=== PATIENT | male | born 1940 | race Two or more races ===

== ENCOUNTER 2021-02-01 08:18 | Outpatient (REF) | payer MEDICAID, SELFPAY ==
[2021-02-01 09:17] LABS: Hematocrit 34.8 % (42-52); Hemoglobin 11.4 g/dl (14.0-18.0); Mean Corpuscular HGB Conc 32.8 g/dl (31.0-36.0); Mean Corpuscular Hemoglobin 30.2 pg (27.0-33.0); Mean Corpuscular Volume 92.1 fL (80-98); Mean Platelet Volume 11.3 fL (9.4-12.4); Platelet Count 158 X10*3/uL (160-400); Red Blood Count 3.78 X10*6/uL (4.60-5.80); Red Cell Distribution Width 13.1 % (11.0-16.0); White Blood Count 4.1 X10*3/uL (4.8-10.8)
[2021-02-01 09:27] LABS: Appearance Urine CLEAR; Color Urine YELLOW; Glucose Urine UA NEG (NEG); Leukocyte Esterase Urine NEG (NEG); Nitrite Urine NEG (NEG); PH 6.5 (5.0-8.0); Specific Gravity - Urine 1.015 (1.005-1.025); Urine Blood NEG (NEG); Urine Ketones NEG (NEG); Urine Protein NEG (NEG-TRACE)
[2021-02-01 09:49] LABS: Alanine Aminotransferase 8 U/L (0-40); Albumin Level 4.1 g/dL (3.5-5.0); Alkaline Phosphatase 86 U/L (39-117); Anion Gap 9 (12-20); Aspartate Amino Transferase 21 U/L (5-37); Bilirubin Direct 0.3 mg/dL (0.0-0.5); Bilirubin Total 0.4 mg/dL (0.0-1.0); Blood Urea Nitrogen 18 mg/dL (9-16); Calcium 10.2 mg/dL (8.4-10.2); Carbon Dioxide 30 mmol/L (22-29); Chloride 102 mmol/L (96-108); Cholesterol 119 mg/dL; Estimated Glomerular Filt Rate 56; Glucose Random 100 mg/dL (60-115); HDL Cholesterol 41 mg/dL; LDL Cholesterol Calculated 66 mg/dl; Sodium 136 mmol/L (135-145); Total Protein 7.4 g/dL (6.5-8.0); Triglycerides 63 mg/dL
[2021-02-01 10:07] LABS: Prostate Specific Antigen Scr 0.56 ng/mL (<0.05-4.0)
[2021-02-05 12:46] LABS: Vitamin D 25-OH, D2 <4 ng/mL; Vitamin D 25-OH, D3 15 ng/mL; Vitamin D 25-OH, Total 15 ng/mL (30-100)
== END 2021-02-01 08:19 | disposition home or self-care (01) ==
LOC: HO.LAB 08:18
PROVIDERS: PCP Internal Medicine; Visit Provider Internal Medicine
DX: I10 Essential (primary) hypertension (principal)
CPT/HCPCS: 36415; 80048; 80061; 80076; 81003; 82306; 84153; 85027

== ENCOUNTER 2021-12-01 15:40 | Outpatient (REF) | payer MEDICAID, SELFPAY ==
[2021-12-01 17:00] LABS: Vitamin B12 847 pg/mL (200-900)
== END 2021-12-01 15:41 | disposition home or self-care (01) ==
LOC: HO.LAB 15:40
PROVIDERS: PCP Internal Medicine; Visit Provider Psychiatry & Neurology Neurology
DX: F03.91 Unspecified dementia, unspecified severity, with behavioral disturbance (principal)
CPT/HCPCS: 36415; 82607

== ENCOUNTER 2022-06-06 07:46 | Outpatient (REF) | payer MEDICAID, SELFPAY ==
[2022-06-06 08:46] LABS: Hemoglobin 11.5 g/dl (14.0-18.0); Mean Corpuscular HGB Conc 33.8 g/dl (31.0-36.0); Mean Corpuscular Hemoglobin 30.9 pg (27.0-33.0); Mean Corpuscular Volume 91.4 fL (80.0-98.0); Platelet Count 186 X10*3/uL (160-400); Red Blood Count 3.72 X10*6/uL (4.60-5.80); Red Cell Distribution Width 12.8 % (11.0-16.0); White Blood Count 7.2 X10*3/uL (4.8-10.8)
[2022-06-06 09:17] LABS: Alanine Aminotransferase 9 U/L (0-40); Albumin Level 4.1 g/dL (3.5-5.0); Alkaline Phosphatase 92 U/L (39-117); Anion Gap 14 (12-20); Aspartate Amino Transferase 21 U/L (5-37); Bilirubin Direct 0.4 mg/dL (0.0-0.5); Bilirubin Total 0.8 mg/dL (0.0-1.0); Blood Urea Nitrogen 12 mg/dL (9-16); Calcium 10.1 mg/dL (8.4-10.2); Carbon Dioxide 27 mmol/L (22-29); Chloride 97 mmol/L (96-108); Cholesterol 106 mg/dL; Estimated Glomerular Filt Rate 56; Glucose Random 92 mg/dL (60-115); HDL Cholesterol 43 mg/dL; LDL Cholesterol Calculated 47 mg/dl; Potassium 4.6 mmol/L (3.3-5.1); Sodium 133 mmol/L (135-145); Total Protein 7.4 g/dL (6.5-8.0); Triglycerides 83 mg/dL
[2022-06-06 09:40] LABS: Thyroid Stimulating Hormone 3.67 uIU/mL (0.32-4.0)
== END 2022-06-06 07:47 | disposition home or self-care (01) ==
LOC: HO.LAB 07:46
PROVIDERS: PCP Internal Medicine; Visit Provider Internal Medicine
DX: E78.00 Pure hypercholesterolemia, unspecified (principal); F03.90 Unspecified dementia, unspecified severity, without behavioral disturbance, psychotic disturbance, mood disturbance, and anxiety; I35.0 Nonrheumatic aortic (valve) stenosis; I10 Essential (primary) hypertension
CPT/HCPCS: 36415; 80048; 80061; 80076; 84443; 85027

== ENCOUNTER 2022-12-26 07:55 | Outpatient (REF) | payer MEDICAID, SELFPAY ==
[2022-12-26 08:54] LABS: Hematocrit 31.7 % (42.0-52.0); Hemoglobin 10.2 g/dl (14.0-18.0); Mean Corpuscular HGB Conc 32.2 g/dl (31.0-36.0); Mean Corpuscular Hemoglobin 29.1 pg (27.0-33.0); Mean Corpuscular Volume 90.3 fL (80.0-98.0); Mean Platelet Volume 10.9 fL (9.4-12.4); Platelet Count 149 X10*3/uL (160-400); Red Blood Count 3.51 X10*6/uL (4.60-5.80); Red Cell Distribution Width 13.2 % (11.0-16.0)
[2022-12-26 09:27] LABS: Alanine Aminotransferase 8 U/L (0-40); Albumin Level 3.8 g/dL (3.5-5.0); Alkaline Phosphatase 87 U/L (39-117); Anion Gap 11 (12-20); Aspartate Amino Transferase 22 U/L (5-37); Bilirubin Direct 0.2 mg/dL (0.0-0.5); Bilirubin Total 0.7 mg/dL (0.0-1.0); Blood Urea Nitrogen 12 mg/dL (9-16); Calcium 9.6 mg/dL (8.4-10.2); Carbon Dioxide 27 mmol/L (22-29); Chloride 103 mmol/L (96-108); Cholesterol 111 mg/dL; Estimated Glomerular Filt Rate 57; Glucose Random 88 mg/dL (60-115); HDL Cholesterol 41 mg/dL; LDL Cholesterol Calculated 56 mg/dl; Potassium 4.6 mmol/L (3.3-5.1); Sodium 136 mmol/L (135-145); Total Protein 6.7 g/dL (6.5-8.0); Triglycerides 71 mg/dL
[2022-12-26 09:45] LABS: Thyroid Stimulating Hormone 4.74 uIU/mL (0.32-4.0)
== END 2022-12-26 07:56 | disposition home or self-care (01) ==
LOC: HO.LAB 07:55
PROVIDERS: PCP Internal Medicine; Visit Provider Internal Medicine
DX: E78.00 Pure hypercholesterolemia, unspecified (principal); F03.90 Unspecified dementia, unspecified severity, without behavioral disturbance, psychotic disturbance, mood disturbance, and anxiety
CPT/HCPCS: 36415; 80048; 80061; 80076; 84443; 85027

== ENCOUNTER 2023-06-10 13:53 | Outpatient (AMB) | payer MEDICAID, SELFPAY ==
--- NOTE | 2023-06-10 13:56 | MHC.PC.OV ---
Vital Signs 06/10/23 13:57 Height 5 ft 6 in Weight 162 lb 3 oz BMI 26.2 BP 120/88 Blood Pressure Location Lt brachial Position Sitting Pulse 60 Pulse Source Pulse Oximeter Pulse Oximetry (%) 98 Oxygen Delivery Method Room Air Intake Visit Reasons: 6mth f/u Intake Note: Patient is here to follow up on HTN, Hypercholesterolemia. Pt was recently admitted at [facility] for confusing and cardiac issues. 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 Accompanied by: Daughter Allergies diphenhydramine Allergy (Severe, Verified 06/15/23 05:24) coded Medication List - Last Reconciled 06/15/23 by Moody Ellis MD apixaban (Eliquis) 5 mg PO BID donepezil 10 mg PO BEDTIME haloperidol 0.5 mg PO DAILY lisinopril 2.5 mg PO DAILY metoprolol tartrate 75 mg PO BID mometasone 0.1% 1 appl topical DAILY rosuvastatin 20 mg PO DAILY Tobacco use date assessed: 06/10/23 Fall risk assessment: No Falls in past year Last assessed Fall Risk: 06/10/23 Dental Screening Dental Screen Date: 06/10/23 Did you have a dental visit in the last 12 months?: No Did you have a dental problem in the last 6 months where you did not have access to dental care?: No Was dental information given to patient?: No HPI 6mth f/u HPI Details 82-year-old male presents to the office to discuss his chronic medical issues. Patient is accompanied by his daughter. Daughter reports that patient continues to get confused later in the evening. He needs to be supervised at times. Able to take a bath and in his personal hygiene independently. Still helps with the cooking. He has had episodes of low blood pressure which has caused him to be hospitalized at least once. Today he is feeling fine and at baseline state of health. [facility] Medical History Dementia Aortic stenosis Hypercholesterolemia Essential (primary) hypertension Surgical History History of permanent cardiac pacemaker placement Social History Housing: House Alcohol intake: never Patient Tobacco Use Status: Never used Tobacco e-Cigarette/Vaping Use: Never Used Second Hand Smoke Exposure: No service: No Current occupational status: retired Cognitive needs: No Hearing needs: No Vision needs: Yes (glasses) Questionnaire Thrive Questionnaire Date Thrive assessed: 12/03/22 JOSE ANGEL-7 AMB Questionnaire JOSE ANGEL-7 Date JOSE ANGEL - 7 assessed: 12/03/22 Source: Developed by Drs. Maikol White, Zoila Bernal, Gonzalo Lauren and colleagues, with an educational manuel from [employer]. Physical exam (Primary Care) Vital Signs: Last Vital Signs Pulse 60 06/10/23 13:57 BP 120/88 06/10/23 13:57 Pulse Ox 98 06/10/23 13:57 Oxygen Delivery Method Room Air 06/10/23 13:57 BMI result Body Mass Index 26.2 Tobacco/Smoking Status: Tobacco use Status Tobacco use date assessed 06/10/23 06/10/23 14:07 Patient Tobacco Use Status Never used Tobacco 06/10/23 14:07 e-Cigarette/Vaping Use Never Used 06/10/23 14:07 Thrive Assessment: Date of Thrive Assessment Date Thrive assessed 12/03/22 06/10/23 14:07 Const General: cooperative and healthy appearing Nutritional Appearance: well nourished Orientation/consciousness: patient oriented x3 Limitations: no limitations HENMT Head: Yes normal to inspection Eyes General: appearance normal, both eyes and all related structures Neck Neck: Yes normal visual inspection Chest Chest palpation & inspection: normal palpation of entire chest wall Resp Effort & Inspection: normal respiratory effort Cardio Other: Heart: Ejection systolic murmur best heard in the aortic area Rate: regular rate Rhythm: regular rhythm Heart sounds: S1 normal heart sound present and S2 normal heart sound present Neuro General: patient oriented x3 Assessment and Plan Assessment & Plan (1) Dementia: Code(s): F03.90 - Unspecified dementia, unspecified severity, without behavioral disturbance, psychotic disturbance, mood disturbance, and anxiety Qualifiers: Dementia type: vascular dementia Dementia severity: moderate Dementia behavioral or psychological symptom: with anxiety Qualified Code(s): F01.B4 - Vascular dementia, moderate, with anxiety Plan: Unfortunately, this condition is slowly worsening. Patient's daughter is using Haldol appropriately. (2) Aortic stenosis: Code(s): I35.0 - Nonrheumatic aortic (valve) stenosis Qualifiers: Cardiac valve disease etiology: etiology unspecified Qualified Code(s): I35.0 - Nonrheumatic aortic (valve) stenosis Plan: Condition is stable. Follow-up with the tab machine operator. (3) Hypercholesterolemia: Code(s): E78.00 - Pure hypercholesterolemia, unspecified Plan: Blood work reviewed with patient (4) Essential (primary) hypertension: Code(s): I10 - Essential (primary) hypertension Plan: ARB has been replaced by Saroj inhibitors. Continue current management. Coding Level of Care Code Est Pt Level 4 (63742) Diagnoses Moderate vascular dementia with anxiety F01.B4 Dementia type: vascular dementia Dementia severity: moderate Dementia behavioral or psychological symptom: with anxiety Aortic valve stenosis, etiology of cardiac valve disease unspecified I35.0 Cardiac valve disease etiology: etiology unspecified Hypercholesterolemia E78.00 Essential (primary) hypertension I10
[2023-06-10 13:57] VITALS: BP 120/88; PULSE 60; O2SAT 98; BMI 26.2
== END 2023-06-10 14:45 | disposition home or self-care (01) ==
PROVIDERS: PCP Internal Medicine; Visit Provider Internal Medicine
DX: F01.B4 Vascular dementia, moderate, with anxiety (principal); I35.0 Nonrheumatic aortic (valve) stenosis; E78.00 Pure hypercholesterolemia, unspecified; I10 Essential (primary) hypertension
CPT/HCPCS: 99214

== ENCOUNTER 2023-12-10 13:10 | Outpatient (AMB) | payer MEDICAID, SELFPAY ==
--- NOTE | 2023-12-10 13:13 | A.OFFPC_ITS ---
Vital Signs 12/10/23 13:15 Height 5 ft 6 in Weight 163 lb 6 oz BMI 26.4 BP 130/76 Blood Pressure Location Lt brachial Position Sitting Pulse 76 Pulse Source Pulse Oximeter Pulse Oximetry (%) 97 Oxygen Delivery Method Room Air Intake Visit Reasons: pe Intake Note: Patient is here today for a physical. 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 Accompanied by: Daughter Allergies diphenhydramine Allergy (Severe, Verified 12/15/23 14:17) coded Medication List - Last Reconciled 12/15/23 by Moody Ellis MD acetaminophen 500 mg PO BID PRN apixaban (Eliquis) 5 mg PO BID donepezil 10 mg PO BEDTIME haloperidol 0.5 mg PO DAILY metoprolol tartrate 75 mg PO BID mometasone 0.1% 1 appl topical DAILY rosuvastatin 20 mg PO DAILY Tobacco use date assessed: 12/10/23 Fall risk assessment: 1 Fall in past year (09/2023.) Last assessed Fall Risk: 12/10/23 Dental Screening Dental Screen Date: 12/10/23 Did you have a dental visit in the last 12 months?: No Did you have a dental problem in the last 6 months where you did not have access to dental care?: No Was dental information given to patient?: No (Dentures) HPI pe HPI Details 83-year-old male presents to the office for a physical. He is accompanied by his daughter who is speaking on his behalf. Patient's dementia is progressing. Whenever his blood pressure drops, she is confusion increases. After discussion with museum director, his blood pressure medications have been stopped. He is compliant with his other medications. Able to take care of his personal hygiene. Patient can feed himself at the table. Sleeping well. Does not go out of the house un supervised. [facility] Medical History Dementia Aortic stenosis Hypercholesterolemia Essential (primary) hypertension Surgical History History of permanent cardiac pacemaker placement Social History Housing: House Alcohol intake: never Patient Tobacco Use Status: Never used Tobacco e-Cigarette/Vaping Use: Never Used Second Hand Smoke Exposure: No service: No Current occupational status: retired Cognitive needs: No Hearing needs: No Vision needs: Yes (glasses) Questionnaire PHQ-9 Over the last 2 weeks, how often have you been bothered by any of the following problems? 1. Little interest or pleasure in doing things: not at all 2. Feeling down, depressed, or hopeless: not at all 3. Trouble falling or staying asleep, or sleeping too much: not at all 4. Feeling tired or having little energy: not at all 5. Poor appetite or overeating: not at all 6. Feeling bad about yourself - or that you are a failure or have let yourself or your family down: not at all 7. Trouble concentrating on things, such as reading the newspaper or watching television: not at all 8. Moving or speaking so slowly that other people could have noticed. Or the opposite - being so fidgety or restless that you have been moving around a lot more than usual: not at all 9. Thoughts that you would be better off or of hurting yourself in some way: not at all Total score: 0 Depression Screening Interpretation: Negative Depression Screening Done: Yes Source: Developed by Drs. Maikol White, Zoila Bernal, Gonzalo Lauren and colleagues, with an educational manuel from [employer]. Thrive Questionnaire Date Thrive assessed: 12/10/23 I am a: Patient What is your living situation today?: I have a steady place to live Within the past 12 months, did the food you bought not last and you didn't have the money to get more?: Never true Within the past 12 months, did you worry whether your food would run out before you got money to buy more?: Never true Do you have trouble paying for medicines?: No Do you have trouble getting transportation to medical appointments?: No Do you have trouble paying your heating and electricity bill?: No Do you have trouble taking care of your child, family member or friend?: No Do you have trouble with day-to-day activities such as bathing, preparing meals, shopping, managing finances, etc.?: No Are you currently unemployed and looking for a job?: No Are you interested in more education?: No Currently or been in a relationship where the following occur: no concerns reported THRIVE Score: 0 AUDIT C Alcohol Use Questionnaire (AUDIT-C) 1. How often do you have a drink containing alcohol?: Never Total Score: 0 JOSE ANGEL-7 AMB Questionnaire JOSE ANGEL-7 Date JOSE ANGEL - 7 assessed: 12/10/23 Feeling nervous, anxious, or on edge: 0 = Not at all Not being able to stop or control worryin = Not at all Worrying too much about different things: 0 = Not at all Trouble relaxin = Not at all Being so restless that it is hard to sit still: 0 = Not at all Becoming easily annoyed or irritable: 0 = Not at all Feeling afraid as if something awful might happen: 0 = Not at all Total JOSE ANGEL-7 score (0-4 normal; 5-9 mild; 10-14 moderate; 15-21 severe): 0 Source: Developed by Drs. Maikol White, Zoila Bernal, Gonzalo Lauren and colleagues, with an educational manuel from [employer]. Physical exam (Primary Care) Vital Signs: Last Vital Signs Pulse 76 12/10/23 13:15 BP 130/76 12/10/23 13:15 Pulse Ox 97 12/10/23 13:15 Oxygen Delivery Method Room Air 12/10/23 13:15 Care Plan Goal for BP management: Blood pressure is in range. BMI result Body Mass Index 26.4 Tobacco/Smoking Status: Tobacco use Status Tobacco use date assessed 12/10/23 12/10/23 13:17 Patient Tobacco Use Status Never used Tobacco 12/10/23 13:17 e-Cigarette/Vaping Use Never Used 12/10/23 13:17 PHQ-9: PHQ-9 Score PHQ-9: Total score 0 12/10/23 13:17 Depression Screening Interpretation: Negative Thrive Assessment: Date of Thrive Assessment Date Thrive assessed 12/10/23 12/10/23 13:17 Currently or been in a relationship where the following occur: no concerns reported Advance Care Planning discussion: Exists, not on file Date of discussion: 12/10/23 Who was present: Patient, his and daughter Forms completed: Health Care Proxy Time spent: 1-15 minutes, not on file Actual minutes spent: 5 Const General: cooperative and healthy appearing Nutritional Appearance: well nourished Orientation/consciousness: patient oriented x3 Limitations: no limitations HENMT Head: Yes normal to inspection Eyes General: appearance normal, both eyes and all related structures Neck Neck: Yes normal visual inspection Chest Chest palpation & inspection: normal palpation of entire chest wall Resp Effort & Inspection: normal respiratory effort Neuro General: patient oriented x3 Assessment and Plan Assessment & Plan (1) Dementia: Code(s): F03.90 - Unspecified dementia, unspecified severity, without behavioral disturbance, psychotic disturbance, mood disturbance, and anxiety Qualifiers: Dementia behavioral or psychological symptom: with anxiety Dementia severity: moderate Dementia type: vascular dementia Qualified Code(s): F01.B4 - Vascular dementia, moderate, with anxiety Plan: Condition is getting worse. Continue current medications. Daughter has plans for the long term care phlebotomist stay of the patient at her home. (2) Hypercholesterolemia: Code(s): E78.00 - Pure hypercholesterolemia, unspecified Plan: Blood work has been ordered. Call the results. (3) Essential (primary) hypertension: Code(s): I10 - Essential (primary) hypertension Plan: Agree with the current plan of holding blood pressure medications. (4) Annual physical exam: Code(s): Z00.00 - Encounter for general adult medical examination without abnormal findings Orders: Orders Thyroid Stimulating Hormone Today E78.00 - Pure hypercholesterolemia, unspecified, F03.90 - Unspecified dementia, unspecified severity, without behavioral disturbance, psychotic disturbance, mood disturbance, and anxiety UA and rflx microscopic Today E78.00 - Pure hypercholesterolemia, unspecified, F03.90 - Unspecified dementia, unspecified severity, without behavioral disturbance, psychotic disturbance, mood disturbance, and anxiety Basic Metabolic Panel Today E78.00 - Pure hypercholesterolemia, unspecified, F03.90 - Unspecified dementia, unspecified severity, without behavioral disturbance, psychotic disturbance, mood disturbance, and anxiety Complete Blood Count no Diff Today E78.00 - Pure hypercholesterolemia, unspecified, F03.90 - Unspecified dementia, unspecified severity, without behavioral disturbance, psychotic disturbance, mood disturbance, and anxiety Lipid Panel Today E78.00 - Pure hypercholesterolemia, unspecified, F03.90 - Unspecified dementia, unspecified severity, without behavioral disturbance, psychotic disturbance, mood disturbance, and anxiety Liver Panel Today E78.00 - Pure hypercholesterolemia, unspecified, F03.90 - Unspecified dementia, unspecified severity, without behavioral disturbance, psychotic disturbance, mood disturbance, and anxiety Medications: Refilled haloperidol 0.5 mg PO DAILY 90 tabs 1RF Coding Level of Care Code Est Pt Prev Care >65y(57327) Diagnoses Moderate vascular dementia with anxiety F01.B4 Dementia behavioral or psychological symptom: with anxiety Dementia severity: moderate Dementia type: vascular dementia Hypercholesterolemia E78.00 Essential (primary) hypertension I10 Annual physical exam Z00.00 Additional Codes Vital Signs *Quality* - Advance Care Planning discussion: Exists, not on file ([id number]) Vital Signs *Quality* - Time spent: 1-15 minutes, not on file ([id number])
[2023-12-10 13:15] VITALS: BP 130/76; PULSE 76; O2SAT 97; BMI 26.4
== END 2023-12-10 14:00 | disposition home or self-care (01) ==
PROVIDERS: PCP Internal Medicine; Visit Provider Internal Medicine
DX: Z00.00 Encounter for general adult medical examination without abnormal findings (principal); F01.B4 Vascular dementia, moderate, with anxiety; E78.00 Pure hypercholesterolemia, unspecified; I10 Essential (primary) hypertension
CPT/HCPCS: 1124F; 99397

== ENCOUNTER 2023-12-25 09:47 | Outpatient (REF) | payer MEDICAID, SELFPAY ==
[2023-12-25 10:35] LABS: Hematocrit 32.9 % (42.0-52.0); Hemoglobin 10.6 g/dl (14.0-18.0); Mean Corpuscular HGB Conc 32.2 g/dl (31.0-36.0); Mean Corpuscular Hemoglobin 26.8 pg (27.0-33.0); Mean Corpuscular Volume 83.3 fL (80.0-98.0); Mean Platelet Volume 10.4 fL (9.4-12.4); Platelet Count 141 X10*3/uL (160-400); Red Blood Count 3.95 X10*6/uL (4.60-5.80); Red Cell Distribution Width 15.5 % (11.0-16.0)
[2023-12-25 11:08] LABS: Alanine Aminotransferase 7 U/L (0-40); Albumin Level 4.2 g/dL (3.5-5.0); Alkaline Phosphatase 94 U/L (39-117); Anion Gap 9 (12-20); Aspartate Amino Transferase 20 U/L (5-37); Bilirubin Direct 0.2 mg/dL (0.0-0.5); Bilirubin Total 0.5 mg/dL (0.0-1.0); Blood Urea Nitrogen 13 mg/dL (9-16); Carbon Dioxide 26 mmol/L (22-29); Chloride 106 mmol/L (96-108); Cholesterol 109 mg/dL (<200); Estimated Glomerular Filt Rate > 60; Glucose Random 87 mg/dL (60-115); HDL Cholesterol 42 mg/dL (>40); LDL Cholesterol Calculated 51 mg/dL (<100); Sodium 137 mmol/L (135-145); Total Protein 7.5 g/dL (6.5-8.0); Triglycerides 82 mg/dL (<150)
[2023-12-25 11:57] LABS: Appearance Urine Clear; Color Urine Yellow; Glucose Urine UA Negative (Negative); Leukocyte Esterase Urine Negative (Negative); Nitrite Urine Negative (Negative); PH 7.5 (5.0-9.0); Specific Gravity - Urine 1.015 (1.005-1.025); UMIC TRIGGER UA YES; Urine Blood Negative (Negative); Urine Ketones Negative (Negative); Urine Protein 100 (2+) mg/dL (Neg-Trace)
[2023-12-25 12:03] LABS: Bacteria Urine None Seen (None Seen); Hyaline Casts Urine 0-2 /LPF (0-2); RBC Urine 0-2 /HPF (0-2); Squamous Epithelial Cell Urine 0-2 /HPF (0-2); WBC Urine 0-5 /HPF (0-5)
== END 2023-12-25 09:48 | disposition home or self-care (01) ==
LOC: HO.LAB 09:47
PROVIDERS: PCP Internal Medicine; Visit Provider Internal Medicine
DX: F03.90 Unspecified dementia, unspecified severity, without behavioral disturbance, psychotic disturbance, mood disturbance, and anxiety (principal); E78.00 Pure hypercholesterolemia, unspecified
CPT/HCPCS: 36415; 80048; 80061; 80076; 81001; 81003; 84443; 85027